=== PATIENT | female | born 1995 | race Caucasian/White ===

== ENCOUNTER 2019-09-01 17:19 | Emergency (ER) | payer SELFPAY ==
[2019-09-01 17:24] VITALS: BP 115/69; PULSE 80; RESP 20; TEMP 37.6; O2SAT 100
--- NOTE | 2019-09-01 17:45 | ED.URI ---
HPI - URI/Sore Throat General Chief Complaint: Upper Respiratory Infection Stated Complaint: sore throat and ear ache and fever Related Data Allergies Allergy/AdvReac Type Severity Reaction Status Date / Time hydromorphone [From Dilaudid] Allergy Rash Verified 09/01/19 17:36 tramadol Allergy Rash Verified 09/01/19 17:36 Review of Systems Review of Systems: Narrative: This is a 23 year old that comes in that has had a sore throat for the past two days. Patient states she has had a fever and her upper body has been hurting. Patient denies taking anything for her symptoms except drinking plenty of fluids. Patient denies body ache like the flu she said she had a rash the day before but it went away and she did has the sore throat. CONSTITUTIONAL: Denies fever, chills, or sweats. EYES: Denies visual changes, redness, or discharge. ENT: Denies rhinorrhea, congestion, reports sore throat, or otalgia. CARDIOVASCULAR:Denies chest pain, palpitations, or edema. RESPIRATORY: Denies cough or dyspnea. GASTROINTESTINAL: Denies abdominal pain, nausea, vomiting, or diarrhea. GENITOURINARY: Denies dysuria or hematuria. SKIN:[Denies rash or itching. MUSCULOSKELETAL:Denies back pain, joint pain, or myalgia. NEUROLOGIC: Denies headache, numbness, or weakness. PSYCHIATRIC:Denies anxiety or depression PMFSH Comments At time as signature, I have reviewed and agree with nursing past medical, social, surgical and family history. Please see nursing chart for further information. There is no relevant family history pertinent to the presenting complaint. Exam Narrative: Exam Narrative: GENERAL:Well-appearing, well-nourished, and in no acute distress. HEAD:Normocephalic, atraumatic. EYES: PERRLA and EOMI. ENT: Nares clear, no rhinorrhea or epistaxis. Mucous membranes moist. Pharyngeal erythema NECK: Supple. CHEST: Clear to auscultation. No respiratory distress. HEART: Regular rate and rhythm. No murmur heard. Normal peripheral pulses. ABDOMEN: Soft, nontender, nondistended, normal active bowel sounds. EXTREMITIES: Normal range of motion. No edema. SKIN: Warm, dry, no rash. NEURO: No focal deficits. Alert and oriented x3. Course Vital Signs Vital signs: Vital Signs Temperature 99.7 F H 09/01/19 17:24 Pulse Rate 80 09/01/19 17:24 Respiratory Rate 20 09/01/19 17:24 Blood Pressure 115/69 09/01/19 17:24 Pulse Oximetry 100 09/01/19 17:24 Temperature 99.7 F H 09/01/19 17:24 Pulse Rate 80 09/01/19 17:24 Respiratory Rate 20 09/01/19 17:24 Blood Pressure 115/69 09/01/19 17:24 Pulse Oximetry 100 09/01/19 17:24 Discharge Plan Discharge Clinical Impression: Pharyngitis Qualifiers: Pharyngitis/tonsillitis etiology: unspecified etiology Qualified Code(s): J02.9 - Acute pharyngitis, unspecified Acute tonsillitis Qualifiers: Streptococcal tonsillitis recurrence: not specified as recurrent or not Patient Disposition: Home, Self-Care Condition: Stable Instructions: Antibiotic Form, Pharyngitis (ED), Tonsillitis (ED) Additional Instructions: Your strep test today was negative. A throat culture will be sent to the laboratory for further testing. IF the test is positive, you will receive a phone call within 48 hours and an appropriate antibiotic will be initiated at that time. You will not receive a phone call if the test is negative. Until the throat culture proves otherwise, you should proceed with treating this is as a viral pharyngitis. Salt water gargles may alleviate some of your throat discomfort. Take Tylenol and/or ibuprofen per the package instructions for pain/fever. Go to the ER if your symptoms become worse of if ANY new symptoms develop Prescriptions: New loratadine [Claritin] 10 mg tablet 10 mg PO DAILY Qty: 30 RF: 0 amoxicillin 500 mg capsule 500 mg PO Q12H 10 Days Qty: 20 RF: 0 Follow-up/Referrals: UNKNOWN,DOCTOR [Primary Care Provider] - Manoj
== END 2019-09-01 17:55 | disposition home or self-care (01) ==
PROVIDERS: Emergency Provider Nurse Practitioner Family
DX: J03.00 Acute streptococcal tonsillitis, unspecified (principal)
CPT/HCPCS: 87081; 87880; 99203; G0463

== ENCOUNTER 2019-11-18 17:18 | Emergency (ER) | payer OTHER, SELFPAY ==
--- NOTE | ~2019-11-18 | XR_ITS ---
XR abdomen/kub 1V 11/18/2019 18:03 INDICATION: Abdominal pain TECHNIQUE: KUB COMPARISON: None FINDINGS: Bowel gas pattern is normal. There is no evidence of free air, mass, organomegaly, ascites or obstruction. No abnormal calculi are seen. There are pelvic phleboliths. The bones appear intact . IMPRESSION: 1: No acute abdominal abnormality identified. Reviewed, dictated and finalized at location A.
--- NOTE | 2019-11-18 17:20 | ED.GENADULT ---
HPI - General Adult General Chief complaint: Abdominal Pain Stated complaint: urinating burning/pain in side/smell/headache Time Seen by Provider: 11/18/19 17:20 Source: patient Mode of arrival: ambulatory Limitations: no limitations History of Present Illness HPI narrative: 24-year-old female patient presents to the [facility] with complaints of urinary pain, burning with urination, abdominal cramping since October 28. Patient denies any back pain. Patient states she has had headache, insomnia and decreased appetite. Patient states that she tried to get into her primary doctors but they were unable to get her and recommend that she come and get a urine dip today. Patient states that she did dip her urine at home and it did show trace leukocytes. Patient also reports that she saw some blood in her urine yesterday but no blood today. Patient states she has had a tubal ligation about 2 years ago. Denies any concerns for STD or vaginal discharge. Related Data Allergies Allergy/AdvReac Type Severity Reaction Status Date / Time hydromorphone [From Dilaudid] Allergy Rash Verified 09/01/19 17:36 tramadol Allergy Rash Verified 09/01/19 17:36 Review of Systems Review of Systems: Narrative: CONSTITUTIONAL: Denies fever, chills, or sweats. EYES: Denies visual changes, redness, or discharge. ENT: Denies rhinorrhea, congestion, sore throat, or otalgia. CARDIOVASCULAR: Denies chest pain, palpitations, or edema. RESPIRATORY: Denies cough or dyspnea. GASTROINTESTINAL: Positive abdominal pain, nausea, denies vomiting, or diarrhea. Decreased appetite GENITOURINARY: Positive pain with urination, hematuria SKIN: Denies rash or itching. MUSCULOSKELETAL: Denies back pain, joint pain, or myalgia. NEUROLOGIC: Positive headache, numbness, or weakness. PSYCHIATRIC: Denies anxiety or depression. PMFSH Surgical History Surgical History (Updated 11/18/19 @ 17:54 by CRISTA Kaufman) Hx of tubal ligation Comments At the time of my signature I agree with nursing past medical history, surgical, social, and family history. There is no relevant family history pertinent to the presenting complaint. Exam Narrative: Exam Narrative: GENERAL: Well-appearing, well-nourished, and in no acute distress. HEAD: Normocephalic, atraumatic. EYES: PERRLA and EOMI. ENT: Nares clear, no rhinorrhea or epistaxis. Mucous membranes moist. NECK: Supple. No lymphadenopathy CHEST: Clear to auscultation. No respiratory distress. HEART: Regular rate and rhythm. No murmur heard. Normal peripheral pulses. ABDOMEN: Soft, flat, nondistended. No guarding, rebound tenderness, or rigid. Patient has tenderness noted to the bilateral upper quadrant and bilateral lower quadrants on palpation. No pulsatilla masses. Hyperactive bowel sounds present in all four quadrants. No organomegaly. Negative Joseph?s sign. No periumbicial tenderness. No Supra public tenderness or distension. Good femoral pulses bilaterally. No hernia noted. No scars or surface trauma. EXTREMITIES: Normal range of motion. No edema. SKIN: Warm, dry, no rash. NEURO: No focal deficits. Alert and oriented x3. Course Reevaluation(s) Reevaluation #1: Reevaluated patient after KUB resulted. Discussed with her that the x-ray was clear of any evidence of obstruction or kidney stones. Discussed with her I am not really quite sure what is causing her pain however since she is having symptoms of burning with urination even though her dip is clean we will go ahead and start her on antibiotics today and send her urine off for culture. Patient verbalized understanding denies any other questions or concerns. Discussed with her that if her symptoms continue to worsen then she would need to go to the ER for further evaluation and treatment. Date: 11/18/19 Time: 18:16 Vital Signs Vital signs: Vital Signs Temperature 37.3 C 11/18/19 17:26 Pulse Rate 83 11/18/19 17:26 Respiratory Rate 16 11/18/19 17:26 Blood Pressure
[2019-11-18 17:26] VITALS: BP 101/52; PULSE 83; RESP 16; TEMP 37.3; O2SAT 100
== END 2019-11-18 18:18 | disposition home or self-care (01) ==
PROVIDERS: Emergency Provider Nurse Practitioner Family
DX: R30.9 Painful micturition, unspecified (principal)
CPT/HCPCS: 74018; 81003; 87086; 87088; 99213; G0463

== ENCOUNTER 2022-05-24 15:40 | Emergency (ER) | payer BC, SELFPAY ==
--- NOTE | 2022-05-24 15:41 | ED.URI ---
HPI - URI/Sore Throat General Chief Complaint: Upper Respiratory Infection Stated Complaint: Fever/Chills/Sore Throat Time Seen by Provider: 05/24/22 15:41 Source: patient Mode of arrival: ambulatory Limitations: no limitations History of Present Illness HPI Narrative: Juliana is a 26-year-old female patient presenting to the clinic today with complaints of fever, chills, and sore throat x2-3 days. 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 She has taken at home COVID testing was negative. MD elicited complaint: sore throat and nasal congestion Related Data Home Medications Medication Instructions Recorded Confirmed Vitamin D3 05/24/22 Allergies Allergy/AdvReac Type Severity Reaction Status Date / Time hydromorphone [From Dilaudid] Allergy Rash Verified 05/24/22 15:56 tramadol Allergy Rash Verified 05/24/22 15:56 Review of Systems Review of Systems: Pertinent positives per HPI. Patient denies any rash, headache, visual changes, dizziness, shortness of breath, chest pain, palpitations, nausea, vomiting, diarrhea, constipation, abdominal pain, or any urinary issues. [facility] Surgical History Surgical History Hx of tubal ligation Comments At the time of my signature, I reviewed and agree with the nursing past medical, surgical, social, and family history. There is no relevant family history pertinent to the patient complaint. Exam Narrative: General: Well-developed, well nourished, in no apparent distress Head: Normocephalic, atraumatic Eyes: Pupils equally round and reactive to light bilaterally, EOM intact, sclera and conjunctive clear, no discharge, lids normal Ears: TMs intact and clear, ear canals clear, no drainage, grossly hearing normal. Nose: Nares patent, clear nasal discharge, no inflammation, no sinus tenderness. Mouth: Oral pharynx without lesions or masses, good dentition, MMM. oropharynx red Neck: Supple, trachea midline, mild enlargement of anterior cervical nodes, no thyroid masses or goiter palpable. Cardio: Regular rate and rhythm, s1 and s2 normal, no murmur appreciated. Resp: Clear to auscultation bilaterally, no rhonchi, rales, wheezing or rubs Course Course Emergency Course: Portions of this record may have been created with voice recognition software. Level of Care: Express Care Visit Vital Signs Vital signs: Vital Signs Temperature 37.3 C 05/24/22 15:48 Pulse Rate 93 05/24/22 15:48 Respiratory Rate 18 05/24/22 15:48 Blood Pressure 108/64 05/24/22 15:48 Pulse Oximetry 100 05/24/22 15:48 Oxygen Delivery Room Air 05/24/22 15:48 Temperature 37.3 C 05/24/22 15:48 Pulse Rate 93 05/24/22 15:48 Respiratory Rate 18 05/24/22 15:48 Blood Pressure 108/64 05/24/22 15:48 Pulse Oximetry 100 05/24/22 15:48 Oxygen Delivery Room Air 05/24/22 15:48 Vital signs reviewed MDM - URI/Sore Throat MDM Narrative Medical decision making narrative: At the time of visit patient is resting comfortably on the exam table. COVID testing was negative at home. Influenza and strep testing was negative here in the clinic today. I suspect patient has URI/pharyngitis/ viral syndrome. Supportive measures were reviewed with the patient she voiced understanding of discharge instructions and agrees to treatment plan. Differential Diagnosis Differential diagnosis: Likely upper respiratory infection, otitis media, sinusitis, viral infection, bronchitis, influenza, pharyngitis and other ( COVID) Lab Data Labs: Influenza A Screen Negative Reference Range: Negative Influenza B Screen Negative Reference Range: Negative Strep Screen Presumptive Negative *(Reference Range: Negative)*
[2022-05-24 15:48] VITALS: BP 108/64; PULSE 93; RESP 18; TEMP 37.3; O2SAT 100
== END 2022-05-24 16:25 | disposition home or self-care (01) ==
LOC: EXPBETH 15:45
PROVIDERS: Emergency Provider Nurse Practitioner Family; PCP Family Medicine
DX: B34.9 Viral infection, unspecified (principal); J06.9 Acute upper respiratory infection, unspecified; J02.9 Acute pharyngitis, unspecified
CPT/HCPCS: 87081; 87804; 87880; 99213; G0463

== ENCOUNTER 2023-02-03 08:42 | Emergency (ER) | payer BC, SELFPAY ==
[2023-02-03 08:50] VITALS: BP 102/65; PULSE 96; RESP 18; TEMP 36.8; O2SAT 100
--- NOTE | 2023-02-03 08:59 | ED.URI ---
HPI - URI/Sore Throat General Chief Complaint: Upper Respiratory Infection Stated Complaint: sore throat,cough,low grade fever Source: patient and family Mode of arrival: ambulatory Limitations: no limitations History of Present Illness HPI Narrative: 27-year-old female presents to [facility] with complaints of sore throat, productive cough of clear colored phlegm, fevers up to 100.9, body aches, nausea and nasal congestion since last evening. Patient has been taking [id number] Tylenol, Sudafed and allergy medication with little relief. Patient is a nonsmoker. Patient denies recent travel. 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 Patient denies vomiting, diarrhea or shortness of breath MD elicited complaint: fever, cough, sore throat and nasal congestion Onset (ago): hour(s) (12) Able to tolerate fluids by mouth: Yes Exacerbating factors: swallowing Treatments prior to arrival: acetaminophen and ibuprofen Related Data Home Medications Medication Instructions Recorded Confirmed lamotrigine 100 mg tablet mg 02/03/23 lamotrigine 25 mg tablet mg 02/03/23 Allergies Allergy/AdvReac Type Severity Reaction Status Date / Time guaifenesin [From Mucinex] Allergy Other Verified 02/03/23 08:57 hydromorphone [From Dilaudid] Allergy Rash Verified 02/03/23 08:57 tramadol Allergy Rash Verified 02/03/23 08:57 Review of Systems Constitutional: Constitutional: Reports chills, Denies fatigue, Reports fever(s) and Denies weakness ENT: Denies dysphagia, Denies vertigo, Denies dizziness, Denies epistaxis, Reports nasal congestion and Reports sore throat Respiratory: Respiratory: Reports cough, Denies dyspnea and Denies wheezing Gastrointestinal: Gastrointestinal: Denies diarrhea, Denies nausea and Denies vomiting Integumentary/Breasts: Skin/Breast: Denies erythema, Denies rash and Denies skin ulcer Neurologic: Denies dizziness, Denies syncope and Denies headache(s) PMFSH Surgical History Surgical History Hx of tubal ligation Comments At time of signature, I agree with nursing past medical, surgical, social and family history. There is no relevant family history pertinent to the presenting complaint. Exam Const: General: healthy appearing and no acute distress Nutritional Appearance: well nourished Orientation/consciousness: patient oriented x3 Limitations: no limitations and No altered mental status HENMT: Head: normal to inspection Ears: external ears normal, TM's normal bilaterally and EAC's normal Face/Nose/Sinus: Normal external nose present Face and sinus: normal facial exam Mouth: Yes Normal oral and palatal mucosa present, Yes lip normal and Yes moist mucous membranes Teeth and gingiva: dentition normal Throat: posterior oropharynx normal and uvula midline Eyes: Conjunctivae: conjunctivae normal Neck: Neck: normal visual inspection Resp: Effort & Inspection: normal respiratory effort and not labored Auscultation: clear to auscultation bilaterally, no crackles, no rales, no rhonchi and no wheezes Cardio: Rate: regular rate Rhythm: regular rhythm Heart sounds: no murmurs Skin: General skin exam: normal color Rashes: no rashes Neuro: Speech: normal speech Gait exam (Neuro): Normal gait present Psych: Affect: normal affect Attitude: cooperative Course Course Level of Care: Express Care Visit Vital Signs Vital signs: Vital Signs Temperature 36.8 C 02/03/23 08:50 Pulse Rate 96 02/03/23 08:50 Respiratory Rate 18 02/03/23 08:50 Blood Pressure 102/65 02/03/23 08:50 Pulse Oximetry 100 02/03/23 08:50 Oxygen Delivery Room Air 02/03/23 08:50 Temperature 36.8 C 02/03/23 08:50 Pulse Rate 96 02/03/23 08:50 Respiratory Rate 18 02/03/23 08:50 Blood Pressure 102/65 02/03/23 08:50 Pulse Oximetry 100 02/03/23 08:50 Oxygen Delivery Room Air 02/03/23 08:50 MDM - URI/Sore T
== END 2023-02-03 09:33 | disposition home or self-care (01) ==
PROVIDERS: Emergency Provider Nurse Practitioner Family
DX: B34.9 Viral infection, unspecified (principal); Z20.822 Contact with and (suspected) exposure to COVID-19
CPT/HCPCS: 87081; 87426; 87804; 87880; 99213; C9803; G0463